=== PATIENT | female | born 1985 | race Caucasian/White ===

== ENCOUNTER 2018-03-01 05:45 | Day surgery (SDC) | payer OTHER, SELFPAY ==
[2018-03-01] VITALS (7 sets, daily range): BP systolic 131–165; BP diastolic 86–97; PULSE 91–99; RESP 16–18; TEMP 36.7–37.4; O2SAT 97–100; BMI 33.7
[2018-03-01 06:13] LABS: Internal QC Validated? YES +Cl - CLEAR BKGD; Pregnancy, Urine Negative Negative
[2018-03-01 06:50] LABS: Anion Gap 9 (5-15); BUN 13 mg/dL (7-18); BUN/Creat Ratio 16.9 RATIO (10-20); Calcium,Total 9.4 mg/dL (8.5-10.1); Chloride 103 mmol/L (98-107); Creatinine, Serum 0.77 mg/dL (0.55-1.02); EST Glomerular Filtration Rate 92 mL/min (>60); Est Glom Filt Rate - Afr Amer 112 mL/min (>60); Estimated Creatinine Clearance 75.34 ml/min; Glucose 201 mg/dL (74-106); Potassium 4.1 mmol/L (3.5-5.1); Sodium Level 137 mmol/L (136-145)
[2018-03-01 06:51] LABS: Bedside Glucose 212 mg/dL (70-110)
--- NOTE | 2018-03-01 07:15 | RAD_ITS ---
STUDY: X-RAY - LEFT ANKLE REASON FOR EXAM: Female, 32 years old. Open reduction and internal fixation of the distal fibular fracture. TECHNIQUE: 3 intraoperative view(s) of the ankle. COMPARISON: None. FINDINGS: Imaging was provided for open reduction and internal fixation of a distal fibular fracture utilizing screw and sideplate fixation device. RAD/Ankle min 3 Views IMPRESSION: Intraoperative imaging provided for ORIF of the distal fibular fracture. There is good alignment. Electronically Signed: Mynor Weinberg MD at 10:14 EDT Tel [phone], Service support ,
[2018-03-01] MEDS: Cefazolin 2 GM in 0.9% Normal Saline 100 ML IV (07:16)
--- NOTE | 2018-03-01 08:08 | PCM.OPRPT ---
Report of Operation Date of Procedure: 03/01/18 Pre-Operative Diagnosis: Left distal fibular fracture with instability of the mortise Post-Operative Diagnosis: Same Surgery/Procedure Performed:: Open reduction with internal fixation of left distal fibula with syndesmotic fixation Description of Surgical Findings:: Kaur B distal fibular fracture with syndesmotic disruption medical record transcriber: Canelo Madrid Type of Anesthesia:: Spinal Anesthesiologist: Wero Benites Estimated Blood Loss (mL): 25 Fluids Replaced: See anesthesia report Description of Procedure: Implants: Arthrex 6 hole one third tubular plate with syndesmotic screw and tight rope Surgical indications: Patient is a 32-year-old female who sustained a ankle fracture with obvious syndesmotic disruption. She has elected to undergo the above procedure. Please see history and physical Procedure description: Patient was greeted in the preoperative area her left lower extremity was marked with surgical marker. Preoperative antibiotics were administered. Patient was then taken to or [address] in stable condition. After adequate anesthesia was obtained and airway secured her left lower external was prepped and draped in usual sterile fashion. Surgical timeout was performed surgery was commenced. Using biplanar fluoroscopic imaging standard lateral approach to the distal fibula was performed. Fracture configuration was identified this was a very long oblique type fibular fracture. I removed soft tissue from the fracture site and placed 2 lobster tenaculums in order to reduce the fracture. Obtained anatomic reduction in 2 lag screws were then placed from anterior to posterior across the fracture site perpendicularly. This was done in a standard AO type fashion. Excellent purchase was obtained. Assessment of the mortise was then performed and was identified that this was largely unstable therefore I elected to place a one third tubular plate also across the fracture for additional fixation as well as anticipated syndesmotic fixation. Cancellus screws placed distally followed by remainder of the screws placed were bicortical with excellent purchase. Once this was complete I once again assess the mortise which again is largely unstable. At this point I placed a tight rope through the plate and all 4 cortices. A clamp was placed on the ankle in order to reduce and hold the ankle mortise while the tight rope was placed and secured. I still was not happy with the fixation of the syndesmosis therefore most distal bicortical screws removed and 2.5 mm drill bit was then used to drill through the 2 cortices of the tibia through the second distal hole of the plate this is measured as a size 54 and a with the clamp in place a cortical screw was then placed and excellent stability of the mortise was obtained. Final x-rays were obtained. The skin was then closed in layers and patient was placed in a posterior and sugar tong type splint. Physician grooming assistant was integral in all portions of this procedure. They assisted with positioning the patient, draping the extremity, holding retractors, closing the wound, and applying the dressing. This was all done under my direct supervision. The physician grooming assistant was essential for a successful, efficient surgery. Postoperatively: We will maintain strict nonweightbearing for minimum of 6 weeks. She will then begin weightbearing in the boot for an additional 4 weeks. At that point will give the option to the patient of removing the syndesmotic screw or allowing this to break with weightbearing moving forward. Patient will initiate gentle active and passive range of motion of the ankle at approximately 2 weeks isometric exercises at 6 weeks and progressive resistance exercises at 8 weeks. - Admit VTE Documentation VTE Present on Admission: Yes VTE Mechan Device Prophylaxis: SCD's, Thigh High ALISSA Marcus VTE Pharm Prophylaxis ordered?: Yes
--- NOTE | 2018-03-01 08:18 | OP.PCM_ITS ---
Report of Operation Date of Procedure: 03/01/18 Pre-Operative Diagnosis: Left distal fibular fracture with instability of the mortise Post-Operative Diagnosis: Same Surgery/Procedure Performed:: Open reduction with internal fixation of left distal fibula with syndesmotic fixation Description of Surgical Findings:: Kaur B distal fibular fracture with syndesmotic disruption hydroelectric mechanic: Canelo Madrid Type of Anesthesia:: Spinal Anesthesiologist: Wero Benites Estimated Blood Loss (mL): 25 Fluids Replaced: See anesthesia report Description of Procedure: Implants: Arthrex 6 hole one third tubular plate with syndesmotic screw and tight rope Surgical indications: Patient is a 32-year-old female who sustained a ankle fracture with obvious syndesmotic disruption. She has elected to undergo the above procedure. Please see history and physical Procedure description: Patient was greeted in the preoperative area her left lower extremity was marked with surgical marker. Preoperative antibiotics were administered. Patient was then taken to or [address] in stable condition. After adequate anesthesia was obtained and airway secured her left lower external was prepped and draped in usual sterile fashion. Surgical timeout was performed surgery was commenced. Using biplanar fluoroscopic imaging standard lateral approach to the distal fibula was performed. Fracture configuration was identified this was a very long oblique type fibular fracture. I removed soft tissue from the fracture site and placed 2 lobster tenaculums in order to reduce the fracture. Obtained anatomic reduction in 2 lag screws were then placed from anterior to posterior across the fracture site perpendicularly. This was done in a standard AO type fashion. Excellent purchase was obtained. Assessment of the mortise was then performed and was identified that this was largely unstable therefore I elected to place a one third tubular plate also across the fracture for additional fixation as well as anticipated syndesmotic fixation. Cancellus screws placed distally followed by remainder of the screws placed were bicortical with excellent purchase. Once this was complete I once again assess the mortise which again is largely unstable. At this point I placed a tight rope through the plate and all 4 cortices. A clamp was placed on the ankle in order to reduce and hold the ankle mortise while the tight rope was placed and secured. I still was not happy with the fixation of the syndesmosis therefore most distal bicortical screws removed and 2.5 mm drill bit was then used to drill through the 2 cortices of the tibia through the second distal hole of the plate this is measured as a size 54 and a with the clamp in place a cortical screw was then placed and excellent stability of the mortise was obtained. Final x-rays were obtained. The skin was then closed in layers and patient was placed in a posterior and sugar tong type splint. Physician assistant cross country coach was integral in all portions of this procedure. They assisted with positioning the patient, draping the extremity, holding retractors , closing the wound, and applying the dressing. This was all done under my direct supervision. The physician assistant cross country coach was essential for a successful, efficient surgery. Postoperatively: We will maintain strict nonweightbearing for minimum of 6 weeks. She will then begin weightbearing in the boot for an additional 4 weeks. At that point will give the option to the patient of removing the syndesmotic screw or allowing this to break with weightbearing moving forward. Patient will initiate gentle active and passive range of motion of the ankle at approximately 2 weeks isometric exercises at 6 weeks and progressive resistance exercises at 8 weeks. - Admit VTE Documentation VTE Present on Admission: Yes VTE Mechan Device Prophylaxis: SCD's, Thigh High ALISSA Marcus VTE Pharm Prophylaxis ordered?: Yes
--- NOTE | 2018-03-01 08:19 | PCM.DC.ORTHO ---
Discharge Diet: No Restrictions Discharge Activity: May Not Drive May shower in (days): 1 Ice area for (Minutes): 20 - Ice area for 20 minutes each hour while awake Weight Bearing Status: No weight bearing - left Keep extremity elevated above heart level: Operative Extremity, Left Leg Call your doctor if your incision/area has: Continuous Slow Oozing, Sudden Increased Bleeding, Increased Pain/ Swelling, Increased Redness, Foul Smelling Discharge Call your doctor if you observe: Fever of 101 or Higher, Coldness, Increased Pain, Numbness or Tingling, Change in Color Cleanse incision/area with: Keep Dressing Clean & Dry Allergies/Adverse Reactions: Allergies Sulfa (Sulfonamide Antibiotics) Allergy (Verified 02/25/18 13:30) HALLUCINATIONS Medications to take at Discharge Bupropion HCl [Bupropion Xl] 300 mg PO DAILY 02/25/18 Calcium Carbonate [Calcium] 600 mg PO BID 02/25/18 Fluoxetine [Prozac] 20 mg PO DAILY 02/25/18 Glipizide [Glucotrol Xl] 5 mg PO DAILY 02/25/18 Insulin Detemir [Levemir] 30 unit SQ QHS 02/25/18 L.acidoph,Paracasei, B.lactis [Probiotic] 1 each PO DAILY 02/25/18 Loratadine 10 mg PO DAILY 02/25/18 Lorazepam [Ativan] 0.5 mg PO BID 02/25/18 Melatonin 3 mg PO QHS 02/25/18 Metformin HCl [Glucophage] 1,000 mg PO BIDCM 02/25/18 Multivits Min/Iron/FA/Herb#186 [Hair, Skin and Nails Caplet] 1 each PO BID 02/25/18 Simvastatin [Zocor] 40 mg PO QHS 02/25/18 Norethindrone AC-Eth Estradiol [Junel 1.5 mg-30 Mcg Tablet] 1 each PO DAILY 03/01/18 Please Follow Up With: Figueroa Sen, When: as scheduled
[2018-03-01 08:54] LABS: Hemoglobin A1c 8.7 % (4.2-6.3)
[2018-03-01 09:36] LABS: Bedside Glucose 190 mg/dL (70-110)
--- NOTE | 2018-03-01 11:25 | SUR.PHASEII ---
Addendum entered by Christy Arnold 03/01/18 14:23: STRAIGHT CATH FOR 1,075 ML CLEAR YELLOW URINE. NO PAIN AT REST, MILD PAIN W/ ACTIVITY. REPORTS FEELING MUCH BETTER. AMBULATED IN HALLWAY USING WALKER, NWB TO LLE, WITH STANDBY ASSIST ONLY, GAIT STEADY. PATIENT VERBALIZES DESIRE TO BE D/C HOME. MOTHER ARRIVES. INSTRUCTED PATIENT AND MOTHER THAT SHE SHOULD INCREASE PO FLUIDS, IF UNABLE TO VOID INDEPENDENTLY NO LATER THAN 2200 TODAY, MUST PAGE/CALL DR MOE, BOTH VERBALIZE UNDERSTANDING. Original Note: Addendum entered by Christy Arnold 03/01/18 13:25: ATTEMPTED UNSUCCESSFULLY TO VOID ON BSC, BLADDER SCANNED FOR >999 ML. WAS ABLE TO TAKE STEPS USING WALKER WITHOUT DIFFICULTY. NOTIFIED DR MOE WHO GAVE ORDER TO STRAIGHT CATH X December D/C HOME WHEN CRITERIA MET. Original Note: S/P SPINAL ANESTHESIA, ATTEMPTED TO STAND AT BEDSIDE WITH WALKER AND ASSIST BUT UNABLE TO SAFELY BEAR WEIGHT TO RLE. REPOSITIONED IN BED WITH LLE ELEVATED. WILL CONTINUE TO MONITOR.
[2018-03-01] MEDS: HYDROcodone Bitartrate/Apap 5/325 Tablet PO (11:31)
== END 2018-03-01 14:26 | disposition home or self-care (01) ==
LOC: SDC 05:48 → AC 05:50
PROVIDERS: Anesthesiology; Family Provider Physician Assistant; PCP Physician Assistant; Visit Provider Orthopaedic Surgery
PROC: (CPT 27792; principal; 2018-03-01 06:55)
DX: S82.832A Other fracture of upper and lower end of left fibula, initial encounter for closed fracture (principal); E11.69 Type 2 diabetes mellitus with other specified complication; E66.3 Overweight; F32.9 Major depressive disorder, single episode, unspecified; E78.00 Pure hypercholesterolemia, unspecified; F41.9 Anxiety disorder, unspecified; Z68.34 Body mass index [BMI] 34.0-34.9, adult; Z79.4 Long term (current) use of insulin; Z79.891 Long term (current) use of opiate analgesic; Z79.899 Other long term (current) drug therapy; X50.1XXA Overexertion from prolonged static or awkward postures, initial encounter; Y93.51 Activity, roller skating (inline) and skateboarding; Y92.89 Other specified places as the place of occurrence of the external cause; Y99.8 Other external cause status
CPT/HCPCS: 27792; 36415; 73610; 76000; 80048; 81025; 82962; 83036; C1713; J7120

== ENCOUNTER 2020-10-30 15:42 | Emergency (ER) | payer OTHER, SELFPAY ==
[2020-10-30 15:43] VITALS: BP 138/82; PULSE 109; RESP 18; TEMP 35.3; O2SAT 95; BMI 34.2
[2020-10-30 15:59] VITALS: BP 151/101; PULSE 110; RESP 15; O2SAT 97
--- NOTE | 2020-10-30 16:00 | ED.DCSUM_ITS ---
History of Present Illness Chief Complaint: Abd Pain Informant: Patient Narrative: 35-year-old female presents with nausea and vomiting. Patient states nausea began around 1300 hrs. today she vomited at around 1330. She tells me that she recently started Trulicity and last week took it on Thursday night he began to have vomiting in the night on Thursday morning. She states that she took her Trulicity on Thursday and now has vomiting this Thursday late afternoon. She wonders if there is a correlation. She is also concerned about pancreatitis as her father has had gallstone pancreatitis. He notes lower abdominal pain. No prior abdominal surgeries. Past Medical History - Allergies and Home Meds Allergies/Adverse Reactions: Allergies Sulfa (Sulfonamide Antibiotics) Allergy (Verified 10/30/20 15:43) HALLUCINATIONS Primary Care Physician: Patric Ponce PA [Primary Care Provider] - Past Medical History: - - Diabetes Surgical History: noncontributory Smoking Status: Never smoker Drugs: None Review of Systems General: Denies: Chills, Fever, Sweats Eyes: Denies: Visual changes - bilaterally, Diplopia ENT: Denies: Rhinorrhea, Sore throat Cardiovascular: Denies: Chest pain, Palpitations Respiratory: Denies: Dyspnea, Cough, Dyspnea on exertion Gastrointestinal: Reports: Abdominal pain, Nausea, Vomiting. Denies: Diarrhea, Melena, Hematochezia Genitourinary: Denies: Dysuria, Hematuria, Frequency Musculoskeletal: Denies: Back pain, Extremity Pain Skin: Denies: Rash, Wounds Neurological: Denies: Headache, Weakness, Numbness Physical Exam Vital Signs/Narrative: Vital Signs Temp Pulse Resp BP Pulse Ox 10/30/20 15:43 95.6 F L 109 H 18 138/82 H 95 Inital Vital Signs reviewed: Yes General: Well nourished, Well developed, No Acute Distress Head: Normocephalic, Atraumatic Eyes: Perrl, EOMI ENT: Moist mucous membranes, No rhinorrhea Neck: Supple, Nontender Cardiovascular: Regular rate, Regular rhythm, No murmurs Respiratory: No distress, CTA bilaterally, Chest nontender Abdomen: Soft, Nontender, Nondistended, Normal bowel sounds Back: Nontender, Normal Inspection Extremities: Nontender, No edema Skin: Normal color, No rash Neurological: Alert, Oriented x3, Cranial nerves II-XII grossly intact, Normal Strength, Normal Sensation Psychological: Normal affect, Normal Mood Diagnostic/Tx/Re-eval Clinical Impression(s) from Imaging Studies Abdomen/Pelvis CT 10/30/20 16:42 IMPRESSION: No acute abdominal or pelvic pathology. Cholelithiasis. Electronically Signed: Arsh Lemos MD at 17:26 EST Tel , Service support , Gallbladder Ultrasound 10/30/20 17:33 IMPRESSION: Fatty liver. No acute abdominal pathology identified. Cholelithiasis. Electronically Signed: Arsh Lemos MD at 19:07 EST Tel , Service support , Laboratory Last Values WBC 25.9 K/mm3 (4.4-11.0) H 10/30/20 16:10 RBC 5.36 M/mm3 (4.2-5.4) 10/30/20 16:10 Hgb 14.9 g/dL (12.0-15.0) 10/30/20 16:10 Hct 46.3 % (37-47) 10/30/20 16:10 MCV 86.4 fL (81-99) 10/30/20 16:10 MCH 27.8 pg (27.0-32.0) 10/30/20 16:10 MCHC 32.2 g/dL (32-36) 10/30/20 16:10 RDW Std Deviation 40.1 fl (35.1-43.9) 10/30/20 16:10 RDW Coeff of Norris 12.9 % (11.6-14.6) 10/30/20 16:10 Plt Count 513 K/mm3 (150-450) H 10/30/20 16:10 MPV 10.0 fl (6.2-12.0) 10/30/20 16:10 Immature Gran % (Auto) 0.700 % (0.0-0.9) 10/30/20 16:10 Neut % (Auto) 79.2 % (47-70) H 10/30/20 16:10 Lymph % (Auto) 12.5 % (19-41) L 10/30/20 16:10 [place] % (Auto) 7.1 % (0-10) 10/30/20 16:10 Eos % (Auto) 0.2 % (0-5) 10/30/20 16:10 Baso % (Auto) 0.3 % (0-1) 10/30/20 16:10 Absolute Neuts (auto) 20.5 X10^3/uL (2.0-7.7) H 10/30/20 16:10 Absolute Lymphs (auto) 3.24 X10^3/uL (0.83-4.51) 10/30/20 16:10 Nucleated RBC % 0 % (0-5) 10/30/20 16:10 Differential Comment SEE COMMENTS 10/30/20 16:10 Diff Path Review December10/30/20 16:10 Platelet Estimate MOD INC (ADEQ) 10/30/20 16:10 RBC Morphology NORM C+C NORMAL (NORM C&C) 10/30/20 16:10 Sodium 137 mmol/L (136-145) 10/30/20 16:10 Potassium 4.7 mmol/L (3.5-5.1) 10/30/20 16:10 Chloride 102 mmol/L (98-107) 10/30/20 16:10 Carbon Dioxide 26.0 mmol/L (21.0-32.0) 10/30/20 16:10 Anion Gap 9 (5-15) 10/30/20 16:10 BUN 10 mg/dL (7-18) 10/30/20 16:10 Creatinine 0.88 mg/dL (0.55-1.02) 10/30/20 16:10 Estim Creat Clear Calc 64.09 ml/min 10/30/20 16:10 Est GFR (MDRD) Af Amer 94 mL/min (>60) 10/30/20 16:10 Est GFR (MDRD) Non-Af 77 mL/min (>60) 10/30/20 16:10 BUN/Creatinine Ratio 11.3 RATIO (10-20) 10/30/20 16:10 Glucose 203 mg/dL (74-106) H 10/30/20 16:10 Calcium 9.3 mg/dL (8.5-10.1) 10/30/20 16:10 Total Bilirubin 0.60 mg/dL (0.20-1.00) 10/30/20 16:10 AST 22 U/L (15-37) 10/30/20 16:10 ALT 48 U/L (13-56) 10/30/20 16:10 Alkaline Phosphatase 61 U/L (45-117) 10/30/20 16:10 Total Protein 7.4 g/dL (6.4-8.2) 10/30/20 16:10 Albumin 3.5 g/dL (3.2-5.0) 10/30/20 16:10 Globulin 3.9 g/dL (2.2-4.2) 10/30/20 16:10 Albumin/Globulin Ratio 0.9 RATIO (0.9-2.4) 10/30/20 16:10 Lipase 72 U/L (73-393) L 10/30/20 16:10 Serum , Qual NEGATIVE Negative 10/30/20 16:10 Urine Color Yellow (Yellow) 10/30/20 17:36 Urine Clarity Sl. Cloudy (Clear) 10/30/20 17:36 Urine pH 5.0 (5.0 - 8.0) 10/30/20 17:36 Ur Specific [place] 1.015 (1.002-1.030) 10/30/20 17:36 Urine Protein 15 mg/dl (Negative) H 10/30/20 17:36 Urine Glucose (UA) 50 mg/dl (Normal) H 10/30/20 17:36 Urine Ketones 15 mg/dl (Negative) H 10/30/20 17:36 Urine Occult Blood Negative /ul (Negative) 10/30/20 17:36 Urine Nitrite Negative (Negative) 10/30/20 17:36 Urine Bilirubin Negative mg/dL (Negative) 10/30/20 17:36 Urine Urobilinogen Normal mg/dl (Normal) 10/30/20 17:36 Ur Leukocyte Esterase Negative /ul (Negative) 10/30/20 17:36 Urine RBC 0 SEEN /hpf (0-5) 10/30/20 17:36 Urine WBC 0 SEEN /hpf (0-5) 10/30/20 17:36 Ur Squamous Epith Cells 0 SEEN /hpf (5-10) 10/30/20 17:36 Urine Bacteria 0 SEEN /hpf (None Seen) 10/30/20 17:36 Urine Mucus 0 SEEN /hpf (<or=2+) 10/30/20 17:36 - Medical Decision Making Patient CMP and lipase negative. Her white count is substantially elevated at 25. Therefore CT of the abdomen pelvis was obtained which demonstrates cholelithiasis. Given her white count vomiting and the cholelithiasis a formal gallbladder ultrasound was obtained that shows no pericholecystic fluid, normal common bile duct and gallbladder wall and a negative sonographic Grady's. I do not feel strongly that the patient's white count and symptoms are related to her gallbladder as she points to below her umbilicus as the area that hurts. She is had no further vomiting here. It is possible that her Trulicity is causing her nausea and vomiting but I will have her follow-up with her primary care physician regarding that. I will write for Zofran at home. She is to return if worsening or concerns or if not improving. ED Disposition - Plan for ED Patient: Disposition: Home or Assisted Living Diagnosis: Cholelithiasis, Vomiting, Leukocytosis Instructions: ED Vomiting (Adult) Prescriptions: Ondansetron [Zofran Odt] 4 mg PO Q6H PRN PRN #10 tab PRN Reason: Nausea Prescription Printed Referrals: Patric Ponce PA [Primary Care Provider] - As soon as possible Additional Instructions: Please follow-up with your primary care provider and ask about continuing Trulicity. You also need to have your white blood cell count rechecked. Today's level was 25.9. Return if worsening or concerns or if not improving.
[2020-10-30] MEDS: Ondansetron 4 MG/2 ML Vial IV (16:16)
[2020-10-30] MEDS: 0.9% Normal Saline 1,000 ML 1000 ML IV (16:16)
[2020-10-30 16:20] LABS: Absolute Lymphocyte Count 3.24 X10^3/uL (0.83-4.51); Absolute Neutrophil Count 20.5 X10^3/uL (2.0-7.7); Basophil# 0.07 X10^3/uL; Basophil% 0.3 % (0-1); Eosinophil# 0.05 X10^3/uL; Eosinophils% 0.2 % (0-5); Hematocrit 46.3 % (37-47); Hemoglobin 14.9 g/dL (12.0-15.0); Lymphocyte # 3.24 X10^3/ul (4.0); Lymphocyte % 12.5 % (19-41); Mean Corp Hgb Conc 32.2 g/dL (32-36); Mean Corpuscular Hgb 27.8 pg (27.0-32.0); Mean Corpuscular Volume 86.4 fL (81-99); Monocyte# 1.83 X10^3/uL; Monocyte% 7.1 % (0-10); NRBC Flagged by Analyzer 0 % (0-5); Neutrophil # 20.53 X10^3/uL (2.7-7.7); Neutrophil % 79.2 % (47-70); POSITIVE DIFFERENTIAL YES; Platelet Count 513 K/mm3 (150-450); RBC Distribution Width CV 12.9 % (11.6-14.6); RBC Distribution Width SD 40.1 fl (35.1-43.9); Red Blood Count 5.36 M/mm3 (4.2-5.4); White Blood Count 25.9 K/mm3 (4.4-11.0)
[2020-10-30 16:24] LABS: Differential Indicated SCAN CRITERIA MET
[2020-10-30 16:38] LABS: ALB/GLOB Ratio 0.9 RATIO (0.9-2.4); AST(SGOT) 22 U/L (15-37); Alanine Aminotransfer ALT/SGPT 48 U/L (13-56); Albumin, Serum 3.5 g/dL (3.2-5.0); Alkaline Phosphatase 61 U/L (45-117); Anion Gap 9 (5-15); BUN 10 mg/dL (7-18); BUN/Creat Ratio 11.3 RATIO (10-20); Calcium,Total 9.3 mg/dL (8.5-10.1); Chloride 102 mmol/L (98-107); Creatinine, Serum 0.88 mg/dL (0.55-1.02); EST Glomerular Filtration Rate 77 mL/min (>60); Est Glom Filt Rate - Afr Amer 94 mL/min (>60); Estimated Creatinine Clearance 64.09 ml/min; Globulin 3.9 g/dL (2.2-4.2); Glucose 203 mg/dL (74-106); Lipase 72 U/L (73-393); Potassium 4.7 mmol/L (3.5-5.1); Protein, Total 7.4 g/dL (6.4-8.2); Sodium Level 137 mmol/L (136-145)
[2020-10-30 16:42] LABS: Differential Comment SEE COMMENTS; Platelet Estimate MOD INC (ADEQ); Red Cell Morphology NORM C+C NORMAL (NORM C&C)
--- NOTE | 2020-10-30 16:42 | CT_ITS ---
STUDY: CT ABDOMEN AND PELVIS WITH CONTRAST REASON FOR EXAM: Female, 35 years old. RADIATION DOSAGE (If Supplied By Facility): DLP = ( 600.67 ) mGycm TECHNIQUE: Transaxial images were obtained from the dome of the diaphragm to the symphysis pubis without oral contrast. ml of 100ML ISOVUE 370 contrast was administered. Sagittal and coronal images were reconstructed. Individualized dose optimization techniques were used for this CT. COMPARISON: None. FINDINGS: The visualized lung bases are clear. The visualized portions of the heart and pericardium are within normal limits. A gallstone is present. The liver is within normal limits. There are no suspicious hepatic lesions. The spleen is normal in size. The pancreas is within normal limits. The adrenal glands are within normal limits. There are no obstructing renal stones. There is no hydronephrosis. There are no focal renal lesions. Normal visualized stomach. There is no evidence of bowel obstruction. There is no bowel wall thickening. The appendix is normal. The aorta is normal in caliber. There is no abdominal or pelvic free air, free fluid, fluid collection or lymphadenopathy. There are no destructive osseous lesions. CT/Abdomen/Pelvis W IV Cont ONLY IMPRESSION: No acute abdominal or pelvic pathology. Cholelithiasis. Electronically Signed: Arsh Lemos MD at 17:26 EST Tel , Service support ,
[2020-10-30 16:55] LABS: Internal QC Validated? YES +Cl - CLEAR BKGD; Pregnancy, Serum, hCG Quali. NEGATIVE Negative
--- NOTE | 2020-10-30 17:33 | US_ITS ---
STUDY: ABDOMINAL ULTRASOUND - RIGHT UPPER QUADRANT REASON FOR VISIT: Female, 35 years old. Pain TECHNIQUE: Ultrasound evaluation of the right upper quadrant was performed with real-time and static kent-scale imaging. TECHNICAL QUALITY: Adequate. COMPARISON: None. FINDINGS: Liver: The liver measures 18 cm. There is increased echogenicity of the liver. Areas of fatty sparing are noted. The bile ducts are within normal limits. There is hepatic color flow. The direction of portal flow is hepatopetal. There is no demonstrated mass lesion. Gallbladder: Normal distended gallbladder. The gallbladder wall measures 2 mm. There is a negative sonographic Grady''s sign. There is no pericholecystic fluid. A gallstone is present. Common Bile Duct (C.B.D.): The common bile duct measures 3 mm. Pancreas: Not well visualized. No abnormalities identified. Right Kidney: Normal size of the right kidney. The right kidney measures 10 cm. Normal renal cortex. There is no demonstrated renal mass or cyst. There is no right hydronephrosis. US/Gallbladder IMPRESSION: Fatty liver. No acute abdominal pathology identified. Cholelithiasis. Electronically Signed: Arsh Lemos MD at 19:07 EST Tel , Service support ,
[2020-10-30 17:41] LABS: Bacteria 0 SEEN /hpf (None Seen); Mucous, Urine 0 SEEN /hpf (<or=2+); Red Blood Cells-Urine 0 SEEN /hpf (0-5); Squamous Epithelial Cells - UA 0 SEEN /hpf (5-10); White Blood Cells 0 SEEN /hpf (0-5)
[2020-10-30 17:52] LABS: Color, Urine Yellow (Yellow); Glucose, Dipstick 50 mg/dl (Normal); Ketone-Dipstick 15 mg/dl (Negative); Leukocyte Esterase-Dipstick Negative /ul (Negative); Nitrite-Dipstick Negative (Negative); Occult Blood-Urine Negative /ul (Negative); Protein-Dipstick 15 mg/dl (Negative); Specific Gravity, Urine 1.015 (1.002-1.030); Urine Bilirubin Dipstick Negative (Negative); Urine Clarity Sl. Cloudy (Clear); Urine Urobilinogen Normal (Normal)
[2020-10-30 18:46] VITALS: BP 122/80; PULSE 102; RESP 14; O2SAT 97
[2020-10-30 19:41] VITALS: BP 126/87; PULSE 100; RESP 16; O2SAT 98
[2020-10-31 14:56] LABS: Pathologist Review Reviewed
== END 2020-10-30 19:42 | disposition home or self-care (01) ==
PROVIDERS: Emergency Provider Emergency Medicine; PCP Physician Assistant
DX: K80.20 Calculus of gallbladder without cholecystitis without obstruction (principal); D72.829 Elevated white blood cell count, unspecified; R11.2 Nausea with vomiting, unspecified; E11.9 Type 2 diabetes mellitus without complications; Z79.899 Other long term (current) drug therapy
CPT/HCPCS: 74177; 76705; 80053; 81001; 83690; 84703; 85025; 96361; 96374; 99284; J7030; Q9967; A4216; J2405

== ENCOUNTER 2021-03-08 12:13 | Emergency (ER) | payer OTHER, SELFPAY ==
[2021-03-08 12:14] VITALS: BP 113/70; PULSE 109; RESP 18; TEMP 36.6; O2SAT 98; BMI 32.2
[2021-03-08 12:17] VITALS: BP 113/70; PULSE 109; RESP 18; TEMP 36.6; O2SAT 98
--- NOTE | 2021-03-08 13:34 | US_ITS ---
STUDY: ABDOMINAL ULTRASOUND - RIGHT UPPER QUADRANT REASON FOR VISIT: Female, 35 years old pain and vomiting TECHNIQUE: Ultrasound evaluation of the right upper quadrant was performed with real-time and static kent-scale imaging. TECHNICAL QUALITY: Adequate. COMPARISON: 10/30/2020 FINDINGS: Liver: The liver measures 18.2 cm. There is normal echogenicity of the liver. The bile ducts are within normal limits. There is hepatic color flow. The direction of portal flow is hepatopetal. There is no demonstrated mass lesion. Gallbladder: Normal distended gallbladder. The gallbladder wall measures 2 mm. There is a negative sonographic Grady''s sign. There is no pericholecystic fluid. There are gallbladder polyps. Common Bile Duct (C.B.D.): The common bile duct measures 3 mm. Pancreas: Normal size of the head, body and tail of the pancreas. There is normal echogenicity of the pancreas. There is no demonstrated pancreatic mass or cyst. Right Kidney: Normal size of the right kidney. The right kidney measures 10.4 cm. Normal renal cortex. The right cortex measures 1.4 cm. There is no demonstrated renal mass or cyst. There is no right hydronephrosis. US/Gallbladder IMPRESSION: Cholesterolosis. Electronically Signed: Den Johnson MD at 16:31 EDT Tel , Service support ,
[2021-03-08] MEDS: Ondansetron 4 MG/2 ML Vial IV (14:03)
[2021-03-08] MEDS: Morphine 4 MG/ML Syringe IV (14:03)
[2021-03-08] MEDS: 0.9% Normal Saline 1,000 ML 1000 ML IV (14:04)
[2021-03-08 14:05] VITALS: BP 133/74; PULSE 108; RESP 14; TEMP 36.8; O2SAT 98
[2021-03-08 14:38] LABS: Absolute Lymphocyte Count 2.68 X10^3/uL (0.83-4.51); Absolute Neutrophil Count 19.2 X10^3/uL (2.0-7.7); Basophil# 0.07 X10^3/uL; Basophil% 0.3 % (0-1); Eosinophil# 0.09 X10^3/uL; Eosinophils% 0.4 % (0-5); Hematocrit 45.5 % (37-47); Hemoglobin 14.6 g/dL (12.0-15.0); Lymphocyte # 2.68 X10^3/ul (0.83-4.51); Lymphocyte % 11.3 % (19-41); Mean Corp Hgb Conc 32.1 g/dL (32-36); Mean Corpuscular Hgb 27.7 pg (27.0-32.0); Mean Corpuscular Volume 86.2 fL (81-99); Mean Platelet Vol. 10.6 fl (6.2-12.0); Monocyte# 1.67 X10^3/uL; NRBC Flagged by Analyzer 0 % (0-5); Neutrophil # 19.16 X10^3/uL (2.7-7.7); Neutrophil % 80.5 % (47-70); POSITIVE DIFFERENTIAL YES; Platelet Count 419 K/mm3 (150-450); RBC Distribution Width CV 12.7 % (11.6-14.6); RBC Distribution Width SD 39.5 fl (35.1-43.9); Red Blood Count 5.28 M/mm3 (4.2-5.4); White Blood Count 23.8 K/mm3 (4.4-11.0)
[2021-03-08 14:39] LABS: Differential Indicated SCAN CRITERIA MET
[2021-03-08 14:43] LABS: Internal QC Validated? YES +Cl - CLEAR BKGD; Pregnancy, Serum, hCG Quali. NEGATIVE Negative
[2021-03-08 14:51] LABS: ALB/GLOB Ratio 0.9 RATIO (0.9-2.4); AST(SGOT) 21 U/L (15-37); Alanine Aminotransfer ALT/SGPT 37 U/L (13-56); Albumin, Serum 3.6 g/dL (3.2-5.0); Alkaline Phosphatase 61 U/L (45-117); Anion Gap 5 (5-15); BUN 12 mg/dL (7-18); Calcium,Total 9.2 mg/dL (8.5-10.1); Chloride 103 mmol/L (98-107); EST Glomerular Filtration Rate 86 mL/min (>60); Est Glom Filt Rate - Afr Amer 105 mL/min (>60); Globulin 3.8 g/dL (2.2-4.2); Glucose 187 mg/dL (74-106); Lipase 75 U/L (73-393); Protein, Total 7.4 g/dL (6.4-8.2); Sodium Level 135 mmol/L (136-145)
[2021-03-08 15:00] VITALS: BP 112/79; PULSE 94; RESP 12; TEMP 37.1; O2SAT 100
[2021-03-08 15:03] LABS: Differential Comment SCANNED
[2021-03-08 15:48] VITALS: BP 113/74; PULSE 97; RESP 19; TEMP 36.3; O2SAT 97
[2021-03-08 16:00] VITALS: BP 113/74; PULSE 92; RESP 16; TEMP 36.6; O2SAT 97
--- NOTE | 2021-03-08 16:41 | EX.ED.DYSGE1 ---
HPI History of Present Illness Chief Complaint: Nausea/Vomiting/Diarrhea Informant: patient Narrative Narrative: 35-year-old female presents to the emergency department with abdominal pain vomiting and diarrhea. Symptoms began abruptly couple hours prior to arrival. She states that this reminded her of when she came to the emergency room in October. She tells me at that time she had a common bile duct stone but was able to pass it without any difficulty. Actually on reviewing the chart the thought was due to her elevated white count gallbladder ultrasound with cholelithiasis it was possible she had had a common bile duct stone that had resolved. She states she is had a HIDA scan that was normal. No fever. She notes lower abdominal pain [facility] Medical History Diabetes Home Medications julio césar Saxena B. lactis 1 ea PO DAILY 02/25/18 [History Last Taken Unknown] bupropion HCl 300 mg PO DAILY 02/25/18 [History Last Taken Unknown] fluoxetine 40 mg PO DAILY 02/25/18 [History Last Taken Unknown] glipizide [Glucotrol Xl] 5 mg PO DAILY 02/25/18 [History Last Taken 02/28/18] loratadine 10 mg PO DAILY 02/25/18 [History Last Taken Unknown] lorazepam 0.5 mg PO TID 02/25/18 [History Last Taken 03/01/18] melatonin 3 mg PO QHS 02/25/18 [History Last Taken Unknown] metformin 1,000 mg PO BIDCM 02/25/18 [History Last Taken 02/28/18] simvastatin 40 mg PO QHS 02/25/18 [History Last Taken Unknown] norethindrone ac-eth estradiol [Junel 1.5 mg-30 Mcg Tablet] 1 ea PO DAILY 03/01/18 [History Last Taken 02/28/18] dulaglutide 0.5 ml SC QWEEK 10/30/20 [History Last Taken Unknown] insulin glargine 30 unit SQ QHS 10/30/20 [History Last Taken Unknown] lisinopril 2.5 mg PO DAILY 10/30/20 [History Last Taken Unknown] ondansetron 4 mg PO Q6H PRN PRN #10 tab 10/30/20 [Rx Last Taken Unknown] Allergy/AdvReac Type Severity Reaction Status Date / Time Sulfa (Sulfonamide Allergy HALLUCINATI Verified 03/08/21 12:17 Antibiotics) ONS Social History (Updated 03/08/21 @ 16:[address] Darryl Gallardo, DO) Smoking Status: Never smoker substance use type: does not use ROS ROS ED Constitutional Constitutional ED: Denies chills or weight loss Eyes Eyes: Denies change in vision or diplopia ENT ENT ED: Denies ear pain, rhinorrhea or sore throat Cardiovascular Cardiovascular: Denies chest pain, orthopnea, palpitations or racing heartbeat Respiratory/Chest Respiratory/Chest: Denies cough, dyspnea or orthopnea Gastrointestinal Gastrointestinal: Reports abdominal pain, diarrhea, nausea and vomiting Genitourinary Genitourinary ED: Denies dysuria, hematuria or urinary frequency Musculoskeletal Musculoskeletal: Denies arthralgias or myalgias Integumentary Denies abscess or rash Neurologic Neurologic: Denies headache(s) or weakness Psychiatric Psychiatric: Denies anxiety, depression, suicidal ideation or suicidal thoughts Endocrine Endocrinology: Denies polydipsia, polyphagia or polyuria Allergic/Immunologic Allergic/Immunologic ED: Denies mouth swelling, tongue swelling or urticaria EXAM Physical Exam Const Vital Signs: 03/08/21 12:14 03/08/21 12:17 03/08/21 14:05 Temperature 97.8 F 97.8 F 98.2 F Temperature Source Oral Oral Temporal Pulse Rate 109 H 109 H 108 H Respiratory Rate 18 18 14 Blood Pressure 113/70 113/70 133/74 H Blood Pressure Mean 84 84 93 Pulse Ox 98 98 98 Oxygen Delivery Method Room Air Room Air Room Air 03/08/21 15:00 03/08/21 15:48 03/08/21 16:00 Temperature 98.7 F 97.3 F L 97.9 F Temperature Source Temporal Temporal Temporal Pulse Rate 94 97 92 Respiratory Rate 12 19 H 16 Blood Pressure 112/79 113/74 113/74 Blood Pressure Mean 90 87 87 Pulse Ox 100 97 97 Oxygen Delivery Method Room Air Room Air Room Air Positive well nourished and well developed General Appearance ED: well developed HEENT Reports normocephalic, head/scalp atraumatic and moist mucous membranes Eyes PERRL and EOMs intact bilaterally Neck no lymphadenopathy, supple and no JVD Resp normal respiratory effort and clear to auscultation bilaterally Cardio regular rate, regular rhythm and no murmurs GI Palpation: soft and tender Back/Spine no CVA tenderness and normal ROM Extremity normal to inspection General Extremety ED: Negative for edema General Extremity: Negative for edema Neuro oriented x3 and CN's II-XII intact bilaterally Sensorium / Orientation: alert Motor Exam: strength 5/5 throughout Psych mental status grossly normal Mood & Affect: Negative for depressed or tearful Skin no rashes or lesions noted and no wounds MDM MDM MDM Narrative Medical decision making narrative: White blood cell count elevated 23.8. CMP and lipase normal. test negative. Gallbladder ultrasound showed polyps. Negative sonographic Grady's no pericholecystic fluid and normal common bile duct. Patient was reexamined and is feeling better. She is comfortable sitting in the bed reading a book. At this point patient be discharged home. She has Zofran at home Lab Data Attestation: I reviewed the patient's lab results. Labs: Laboratory Results - last 24 hr 03/08/21 03/08/21 03/08/21 13:15 13:15 13:15 WBC 23.8 H RBC 5.28 Hgb 14.6 Hct 45.5 MCV 86.2 MCH 27.7 MCHC 32.1 RDW Std Deviation 39.5 RDW Coeff of Norris 12.7 Plt Count 419 MPV 10.6 Immature Gran % (Auto) 0.500 Neut % (Auto) 80.5 H Lymph % (Auto) 11.3 L [place] % (Auto) 7.0 Eos % (Auto) 0.4 Baso % (Auto) 0.3 Absolute Neuts (auto) 19.2 H Absolute Lymphs (auto) 2.68 Nucleated RBC % 0 Differential Comment SCANNED Diff Path Review May foll Sodium 135 L Potassium 5.0 Chloride 103 Carbon Dioxide 27.0 Anion Gap 5 BUN 12 Creatinine 0.80 Estim Creat Clear Calc 70.50 Est GFR (MDRD) Af Amer 105 Est GFR (MDRD) Non-Af 86 BUN/Creatinine Ratio 15.0 Glucose 187 H Calcium 9.2 Total Bilirubin 0.60 AST 21 ALT 37 Alkaline Phosphatase 61 Total Protein 7.4 Albumin 3.6 Globulin 3.8 Albumin/Globulin Ratio 0.9 Lipase 75 Serum , Qual NEGATIVE Radiography Diagnostic Testing: Radiology Impression Gallbladder Ultrasound 03/08/21 13:34 IMPRESSION: Cholesterolosis. Electronically Signed: Den Johnson MD at 16:31 EDT Tel , Service support , Discharge Plan Triage Chief Complaint: Nausea/Vomiting/Diarrhea ED Provider: Darryl Gallardo Dx/Rx/DC Orders Clinical Impression: Nausea, vomiting and diarrhea Instructions: ED Vomiting and Diarrhea ... Prescriptions: No Action glipizide [Glucotrol XL] 5 MG tablet extended release 24hr 5 mg PO DAILY RF: 0 simvastatin 40 MG tablet 40 mg PO QHS RF: 0 lorazepam 0.5 MG tablet 0.5 mg PO TID RF: 0 metformin 1,000 MG tablet 1,000 mg PO BIDCM RF: 0 fluoxetine 20 MG capsule 40 mg PO DAILY RF: 0 loratadine 10 MG tablet 10 mg PO DAILY RF: 0 melatonin 3 MG tablet extended release 3 mg PO QHS RF: 0 bupropion HCl 300 MG tablet extended release 24 hr 300 mg PO DAILY RF: 0 L.acidoph, paracasei,B. lactis 1 EACH capsule 1 ea PO DAILY RF: 0 norethindrone ac-eth estradiol [ ()] 1 EACH tablet 1 ea PO DAILY RF: 0 lisinopril 2.5 MG tablet 2.5 mg PO DAILY RF: 0 insulin glargine 100 UNIT/ML insulin pen 30 unit SQ QHS RF: 0 dulaglutide 1.5 MG/0.5 ML pen injector 0.5 ml SC QWEEK RF: 0 ondansetron 4 MG tablet 4 mg PO Q6H PRN PRN (Reason: Nausea) Qty: 10 RF: 0 Primary Care Provider: Patric Ponce Referrals: Patric Ponce PA [Primary Care Provider] - As Needed Disposition Disposition: Home, Self Care
[2021-03-11 13:05] LABS: Pathologist Review Reviewed
== END 2021-03-08 17:05 | disposition home or self-care (01) ==
PROVIDERS: Emergency Provider Emergency Medicine; PCP Physician Assistant
DX: R19.7 Diarrhea, unspecified (principal); R11.2 Nausea with vomiting, unspecified; E11.9 Type 2 diabetes mellitus without complications; Z79.4 Long term (current) use of insulin
CPT/HCPCS: 76705; 80053; 83690; 84703; 85025; 96361; 96374; 96375; 99282; J7030; A4216; J2405

== ENCOUNTER → 2022-09-24 | Outpatient (CLI) | payer OTHER, SELFPAY ==
--- NOTE | 2022-09-24 | FLU_PTH ---
PATIENT: MARISSA LEWIS LOC: [facility] U#:[id number] AGE/SX: 37/F ROOM: RE09/24/[address]: Dr. Darryl Arias MD : 1985 BED: DIS: 09/24/2022 SPEC #: [id number] RECD: 09/24/22 12:13 STATUS: ANAYELI REMel #: [id number] REBECCA: 09/24/22 00:[address]: Darryl Arias DEPT: CYTOLOGY RECD BY: Efrem Subramanian ENTERED: 09/25/22 09:09 SP TYPE: Fluid OTHR DR: TINO Kam Tissues: A - Thyroid gland, NOS B - Thyroid gland, NOS C - Thyroid gland, NOS D - Thyroid gland, NOS Procedures: Special Stain Group II Surgery Specimen Level IV Cytospin Fluid HEADER OPERATION: Fine needle aspiration right and left thyroid PRE-OP DIAGNOSIS: Multinodular goiter TISSUE SUBMITTED: A ? FNA right thyroid nodule fluid, B - FNA right thyroid nodule x12 slides, C - FNA left thyroid nodule fluid, D - FNA left thyroid nodule x10 slides DIAGNOSIS CYTOLOGY A. Fine needle aspiration, right thyroid nodule fluid (cytospin and cell block): Adequate for evaluation. Benign, consistent with benign follicular/colloid nodule (Wilcox Category II). See comment. B. Fine needle aspiration, right thyroid nodule (smears): Adequate for evaluation. Benign, consistent with benign follicular/colloid nodule (Wilcox Category II). See comment. C. Fine needle aspiration, left thyroid nodule fluid (cytospin and cell block): Adequate for evaluation. Benign, consistent with benign follicular/colloid nodule (Wilcox Category II). See comment. D. Fine needle aspiration, left thyroid nodule (smears): Adequate for evaluation. Benign, consistent with benign follicular/colloid nodule (Wilcox Category II). See comment. AM:guillermo 09/26/2022 COMMENT A-D. The Wilcox System for thyroid diagnostic categorization was used in the evaluation of this case. The specimen is adequate for evaluation. CYTOLOGY STUDY Slides are reviewed. CYTOLOGY GROSS A - Received is 30 ml of brown cloudy fluid labeled with the patient's name and and designated per the requisition as right thyroid nodule. Submitted for cytology preparation including cell block. B - Received are 12 smears labeled with the patient's name and designated per the requisition as right thyroid nodule. Submitted for staining. C - Received is 30 ml of light brown fluid labeled with the patient's name and and designated per the requisition as left thyroid nodule. Submitted for cytology preparation including cell block. D - Received are 10 smears labeled with the patient's name and designated per the requisition as left thyroid nodule. Submitted for staining. / guillermo 09/25/2022 TC:5 CPT: 11122 x4, 27204 x2
== END | disposition home or self-care (01) ==
LOC: LABSPEC 12:36
PROVIDERS: PCP Physician Assistant; Visit Provider Surgery
DX: E04.2 Nontoxic multinodular goiter (principal)
CPT/HCPCS: 88108; 88305; 88313